=== PATIENT | female | born 1950 | race American Indian/Alaskan Native ===

== ENCOUNTER → 2020-06-16 | Emergency (ER) | payer MEDICARE, OTHER ==
[~2020-06-16] VITALS: Ht 149.9 cm; Wt 70.9 kg
[~2020-06-16] MED LIST: ALBU8.5H4 IH; CARV3.123 PR; CLOP75TA33 PO; EPIN0.3A3 IM; INSU100V36 SQ; IPRA3AMP31 IH; LANTUS SQ; LEVO112T52 PO; LISI-600 PO; METF-900 PO; NITR0.4T51 SL; ROSU10TA2 PO; TETanus/Pertussis (Acell)/Diphther VAC/PF (Tdap-Adult) 0.5ml syringe IMVAC ONE
[2020-06-16 14:50] LABS: BASOPHILS % (AUTO) 0.5 % (0-1); EOSINOPHILS # (AUTO) 0.2 X10'3 (0-0.9); EOSINOPHILS % (AUTO) 3.7 % (0-6); HEMATOCRIT 40.3 % (35.0-45.0); LYMPHOCYTES # (AUTO) 1.9 X10'3 (1.1-4.8); LYMPHOCYTES % (AUTO) 30.3 % (21-51); MEAN CORPUSCULAR HEMOGLOBIN 27.4 PG (27.0-31.0); MEAN CORPUSCULAR HGB CONC 32.4 g/dL (33.0-36.5); MEAN CORPUSCULAR VOLUME 84.5 FL (78-98); MEAN PLATELET VOLUME 9.4 FL (7.4-10.4); MONOCYTES # (AUTO) 0.6 X10'3 (0-0.9); MONOCYTES % (AUTO) 10.1 % (2-12); NEUTROPHILS # (AUTO) 3.5 X10'3 (1.8-7.7); NEUTROPHILS % (AUTO) 55.4 % (42-75); PLATELET COUNT 213 X10'3 (140-440); RED BLOOD COUNT 4.77 X10'6 (4.20-5.60); RED CELL DISTRIBUTION WIDTH 14.8 % (11.5-14.5); WHITE BLOOD COUNT 6.3 X10'3 (4.5-11.0)
[2020-06-16 15:03] LABS: ALANINE AMINOTRANSFERASE 25 U/L (12-78); ALBUMIN 3.5 G/DL (3.4-5.0); ALBUMIN/GLOBULIN RATIO 1.1 (1.1-1.5); ALKALINE PHOSPHATASE 63 IU/L (46-116); ANION GAP 11 (8-16); ASPARTATE AMINO TRANSFERASE 17 U/L (10-37); BILIRUBIN,TOTAL 0.3 MG/DL (0.1-1.0); BLOOD UREA NITROGEN 19 MG/DL (7-18); BUN/CREATININE RATIO 16.8 (6.6-38.0); CALCIUM 8.6 MG/DL (8.5-10.1); CHLORIDE 106 MMOL/L (99-107); CREATININE 1.13 MG/DL (0.40-0.90); GLUCOSE 91 MG/DL (70-104); POTASSIUM 4.7 MMOL/L (3.5-5.1); SODIUM 141 MMOL/L (135-145); TOTAL CARBON DIOXIDE 24.4 MMOL/L (24-32); TOTAL PROTEIN 6.8 G/DL (6.4-8.2); eGFR 47 ML/MIN
--- NOTE | 2020-06-16 16:17 | NUR ---
[facility] CALLED, THEY WILL BE HERE IN 20 MINUTES TO PICK PT UP.
[2020-06-16 16:28] VITALS: BP 134/73
== END | disposition home or self-care (01) ==
LOC: ER 13:55
DX: S09.90XA Unspecified injury of head, initial encounter (principal); S51.011A Laceration without foreign body of right elbow, initial encounter; R11.0 Nausea; R07.89 Other chest pain; E78.00 Pure hypercholesterolemia, unspecified; I10 Essential (primary) hypertension; J44.9 Chronic obstructive pulmonary disease, unspecified; E11.9 Type 2 diabetes mellitus without complications; Z20.3 Contact with and (suspected) exposure to rabies; Z98.890 Other specified postprocedural states; Z72.89 Other problems related to lifestyle; Z88.0 Allergy status to penicillin; Z91.011 Allergy to milk products; Z91.010 Allergy to peanuts; Z79.4 Long term (current) use of insulin; Z79.899 Other long term (current) drug therapy; W19.XXXA Unspecified fall, initial encounter; Y93.9 Activity, unspecified; Y92.89 Other specified places as the place of occurrence of the external cause; Y99.8 Other external cause status
CPT/HCPCS: 36415; 70450; 71045; 72125; 73080; 73090; 80053; 83880; 84484; 85025; 90471; 90715; 93005; 99285

== ENCOUNTER 2022-02-06 09:31 | Emergency (ER) | payer MEDICARE, OTHER ==
[~2022-02-06] VITALS: Ht 149.9 cm; Wt 79.1 kg
[~2022-02-06 09:31] MED LIST changes: -LISI-600 PO; +LISI20TA28 PO; -TETanus/Pertussis (Acell)/Diphther VAC/PF (Tdap-Adult) 0.5ml syringe IMVAC ONE
[2022-02-06] MEDS ORDERED: aspirin 81mg tab.chew PO ONE (09:45)
[2022-02-06] MEDS ORDERED: nitroGLYCERIN 0.4mg SUBLingual tab SL PRN (09:55)
[2022-02-06 10:10] LABS: BASOPHILS % (AUTO) 0.5 % (0-1); EOSINOPHILS # (AUTO) 0.1 X10'3 (0-0.9); EOSINOPHILS % (AUTO) 1.6 % (0-6); HEMATOCRIT 39.6 % (35.0-45.0); HEMOGLOBIN 13.2 g/dl (12.0-16.0); LYMPHOCYTES # (AUTO) 1.5 X10'3 (1.1-4.8); LYMPHOCYTES % (AUTO) 22.2 % (21-51); MEAN CORPUSCULAR HEMOGLOBIN 27.8 PG (27.0-31.0); MEAN CORPUSCULAR HGB CONC 33.4 g/dL (33.0-36.5); MEAN CORPUSCULAR VOLUME 83.3 FL (78-98); MEAN PLATELET VOLUME 8.8 FL (7.4-10.4); MONOCYTES # (AUTO) 0.6 X10'3 (0-0.9); MONOCYTES % (AUTO) 8.7 % (2-12); NEUTROPHILS # (AUTO) 4.6 X10'3 (1.8-7.7); PLATELET COUNT 215 X10'3 (140-440); RED BLOOD COUNT 4.75 X10'6 (4.20-5.60); RED CELL DISTRIBUTION WIDTH 15.4 % (11.5-14.5); WHITE BLOOD COUNT 6.9 X10'3 (4.5-11.0)
[2022-02-06 10:26] LABS: ALANINE AMINOTRANSFERASE 28 U/L (12-78); ALBUMIN 3.6 G/DL (3.4-5.0); ALBUMIN/GLOBULIN RATIO 1.2 (1.1-1.5); ALKALINE PHOSPHATASE 65 IU/L (46-116); ANION GAP 9 (8-16); ASPARTATE AMINO TRANSFERASE 18 U/L (10-37); BILIRUBIN,TOTAL 0.5 MG/DL (0.1-1.0); BLOOD UREA NITROGEN 18 MG/DL (7-18); BUN/CREATININE RATIO 15.4 (6.6-38.0); CALCIUM 8.9 MG/DL (8.5-10.1); CHLORIDE 103 MMOL/L (99-107); CREATININE 1.17 MG/DL (0.40-0.90); GLUCOSE 189 MG/DL (70-104); POTASSIUM 4.5 MMOL/L (3.5-5.1); SODIUM 137 MMOL/L (135-145); TOTAL CARBON DIOXIDE 24.8 MMOL/L (24-32); TOTAL PROTEIN 6.7 G/DL (6.4-8.2); eGFR 45 ML/MIN
[2022-02-06] MEDS ORDERED: metoprolol tartrate 50mg tablet PO ONE (10:50)
[2022-02-06] MEDS ORDERED: ROSU20TA31 (13:36)
[2022-02-06] MEDS ORDERED: AMLO5TAB16 (13:36)
[2022-02-06] MEDS ORDERED: LEVO75TA PO (13:36)
[2022-02-06 14:01] VITALS: BP 133/60
== END 2022-02-06 14:50 | disposition home or self-care (01) ==
LOC: ER 09:33
DX: R07.9 Chest pain, unspecified (principal); I10 Essential (primary) hypertension; I11.9 Hypertensive heart disease without heart failure; E78.00 Pure hypercholesterolemia, unspecified; E11.9 Type 2 diabetes mellitus without complications; J44.9 Chronic obstructive pulmonary disease, unspecified; E06.9 Thyroiditis, unspecified; Z91.011 Allergy to milk products; Z88.0 Allergy status to penicillin; Z79.899 Other long term (current) drug therapy; Z91.010 Allergy to peanuts
CPT/HCPCS: 36415; 71045; 80053; 83880; 84484; 85025; 93005; 99285

== ENCOUNTER 2023-04-05 00:42 | Observation (INO) | payer MEDICARE, OTHER ==
[~2023-04-05] VITALS: Ht 149.9 cm; Wt 72.3 kg
[~2023-04-05 00:42] MED LIST changes: +AMLO5TAB16; -LEVO112T52 PO; +LEVO75TA PO; +ROSU20TA73
[2023-04-05] MEDS ORDERED: oxyCODONE IR 5mg (immed. release) tablet PO ONE (01:00)
[2023-04-05] MEDS ORDERED: mag hydrox/Alum hydrox/simeth 30ml oral suspension PO ONE (01:00)
[2023-04-05] MEDS ORDERED: LIDOcaine Viscous 15ml cup MM ONE (01:00)
[2023-04-05 01:06] LABS: BASOPHILS % (AUTO) 0.6 % (0-1); EOSINOPHILS # (AUTO) 0.1 X10'3 (0-0.9); EOSINOPHILS % (AUTO) 2.4 % (0-6); HEMATOCRIT 40.1 % (35.0-45.0); HEMOGLOBIN 13.2 g/dl (12.0-16.0); LYMPHOCYTES % (AUTO) 35.7 % (21-51); MEAN CORPUSCULAR HEMOGLOBIN 27.1 PG (27.0-31.0); MEAN CORPUSCULAR HGB CONC 32.8 g/dL (33.0-36.5); MEAN CORPUSCULAR VOLUME 82.5 FL (78-98); MEAN PLATELET VOLUME 8.9 FL (7.4-10.4); MONOCYTES # (AUTO) 0.6 X10'3 (0-0.9); MONOCYTES % (AUTO) 10.6 % (2-12); NEUTROPHILS # (AUTO) 2.8 X10'3 (1.8-7.7); NEUTROPHILS % (AUTO) 50.7 % (42-75); PLATELET COUNT 215 X10'3 (140-440); RED BLOOD COUNT 4.86 X10'6 (4.20-5.60); RED CELL DISTRIBUTION WIDTH 16.2 % (11.5-14.5); WHITE BLOOD COUNT 5.6 X10'3 (4.5-11.0)
[2023-04-05 02:44] LABS: PROTHROMBIN TIME 10.9 SECONDS (9.0-12.0)
[2023-04-05 02:49] LABS: ALANINE AMINOTRANSFERASE 55 U/L (12-78); ALBUMIN 3.6 G/DL (3.4-5.0); ALBUMIN/GLOBULIN RATIO 1.1 (1.1-1.5); ALKALINE PHOSPHATASE 110 IU/L (46-116); ANION GAP 7 (8-16); ASPARTATE AMINO TRANSFERASE 112 U/L (10-37); BILIRUBIN,TOTAL 0.9 MG/DL (0.1-1.0); BLOOD UREA NITROGEN 22 MG/DL (7-18); BUN/CREATININE RATIO 17.1 (10.0-20.0); CALCIUM 9.3 MG/DL (8.5-10.1); CHLORIDE 102 MMOL/L (99-107); CREATININE 1.29 MG/DL (0.40-0.90); GLUCOSE 162 MG/DL (70-104); POTASSIUM 3.9 MMOL/L (3.5-5.1); SODIUM 138 MMOL/L (135-145); TOTAL CARBON DIOXIDE 28.7 MMOL/L (24-32); TOTAL PROTEIN 6.8 G/DL (6.4-8.2); eCRCL 26 ML/MIN; eGFR 40 ML/MIN
[2023-04-05 02:57] LABS: LIPASE 29 U/L (16-77); PRO BRAIN NATRIURETIC PEPTIDE 39 PG/ML (0-450)
[2023-04-05] MEDS ORDERED: ondansetron 4mg rapidly disintigrating tab PO ONE (03:30)
[2023-04-05 05:40] LABS: BILIRUBIN,URINE NEGATIVE (Neg); CLARITY,URINE CLEAR (Clear); COLOR,URINE YELLOW (Yellow); GLUCOSE, URINE >=1000 mg/dl (Neg); KETONES,URINE TRACE mg/dl (Neg); LEUKOCYTE ESTERASE ,URINE NEGATIVE (Neg); NITRITES, URINE NEGATIVE (Neg); OCCULT BLOOD,URINE TRACE-INTACT (Neg); PH,URINE 5.5 (4.8-8.0); PROTEIN,URINE NEGATIVE (Neg); UROBILINOGEN,URINE 0.2 E.U/dL (0.2-1.0)
[2023-04-05 05:41] LABS: UA COLLECTION TYPE CLN CATCH MIDSTREAM
[2023-04-05 05:59] LABS: BACTERIA,URINE NONE SEEN /HPF (Neg); MUCUS STRANDS NONE SEEN /LPF (Neg); RBC,URINE 0-2 /HPF (0-2); SQUAMOUS EPITHELIAL CELL,UR FEW /LPF (FEW); WBC,URINE 0-4 /HPF (0-4)
[2023-04-05] MEDS ORDERED: morphine 2 MG/ML inj. syringe IV PRN ×2 (09:40)
[2023-04-05] MEDS ORDERED: regadenoson 0.4mg/5ml syringe IV PRN (09:40)
[2023-04-05] MEDS ORDERED: metoprolol tartrate 1mg/ml inj IV PRN (09:40)
[2023-04-05] MEDS ORDERED: mag hydrox/Alum hydrox/simeth 30ml oral suspension PO PRN (09:40)
[2023-04-05] MEDS ORDERED: potassium Cl 40MEQ/1/2NS 520ml 520 ML IV PRN (09:40)
[2023-04-05] MEDS ORDERED: ondansetron/PF 4mg/2ml inj IV PRN (09:40)
[2023-04-05] MEDS ORDERED: nitroGLYCERIN 0.4mg SUBLingual tab SL PRN (09:40)
[2023-04-05] MEDS ORDERED: magnesium hydroxide 30ml (MOM) UD suspension PO PRN (09:40)
[2023-04-05] MEDS ORDERED: ipratropium/albuterol 3ml nebule IH PRN (09:40)
[2023-04-05] MEDS ORDERED: nitroGLYCERIN 0.4mg SUBLingual tab SL SCH (09:40)
[2023-04-05] MEDS ORDERED: docusate sod 100mg capsule PO PRN (09:40)
[2023-04-05] MEDS ORDERED: potassium Cl 20 mEq SR tablet PO PRN ×2 (09:40)
[2023-04-05] MEDS ORDERED: magnesium Cl slow-release 64mg tablet PO PRN (09:40)
[2023-04-05] MEDS ORDERED: aminophylline 250mg/10ml inj. IV PRN (09:40)
[2023-04-05] MEDS ORDERED: magnesium 4gm in 100ml NS 100 ML IV PRN (09:40)
[2023-04-05] MEDS ORDERED: acetaminophen 325mg tablet PO PRN (09:40)
[2023-04-05] MEDS ORDERED: insulin Lispro (HumaLOG) vial - multi-dose SQ SCH (09:55)
[2023-04-05] MEDS ORDERED: dextrose 50%-water 50ml dispensing syringe IV PRN ×2 (09:55)
[2023-04-05] MEDS ORDERED: MESSAGE TO PHARMACY PO ONE (09:55)
[2023-04-05] MEDS ORDERED: DEXTROSE 15 GM of carb/4 tabs (each vial/BOTTLE has 4 tablets) PO PRN ×2 (09:55)
[2023-04-05] MEDS ORDERED: glucagon, human recombinant 1mg kit SUBCUT PRN (09:55)
[2023-04-05 12:26] LABS: HEMOGLOBIN A1C 6.9 % (4.5-6.2)
--- NOTE | 2023-04-05 12:58 | NUR ---
pt taken to restroom via wheelchair, urine sample collected. pt placed in hospital bed.
[2023-04-05 15:35] VITALS: PULSE 87; RESP 16; O2SAT 94
--- NOTE | 2023-04-05 17:30 | NUR ---
PT WHEELED TO RESTROOM, TRANSFERRED TO WHEELCHAIR WITHOUT ISSUE. MEAL TRAY PROVIDED.
--- NOTE | 2023-04-05 18:16 | NUR ---
REPORT GIVEN TO LAVELL DILLON
--- NOTE | 2023-04-05 19:57 | NUR ---
PT HAS YET TO EAT DINNER, REQUESTED TRAY TO STAY IN ROOM IN CASE SHE DECIDES TO EAT. RESTING COMFORTABLY IN BED, VSS, RR EVEN & UNLABORED, NAD OBSERVED.
[2023-04-05] MEDS ORDERED: insulin glargine (Lantus) pen - multi-dose SQ SCH (21:00)
[2023-04-05 22:00] VITALS: BP 126/52; PULSE 84; RESP 22; TEMP 97.9; O2SAT 93
[2023-04-05] MEDS: carVEDilol 3.125mg tablet PO SCH (22:46)
[2023-04-05 23:28] VITALS: PULSE 81; RESP 18; O2SAT 95
[2023-04-06] VITALS (17 sets, daily range): BP systolic 102–152; BP diastolic 51–69; PULSE 63–100; RESP 12–22; TEMP 97.5–98.7; O2SAT 94–99
[2023-04-06 06:11] LABS: BASOPHILS % (AUTO) 0.3 % (0-1); EOSINOPHILS % (AUTO) 0.5 % (0-6); HEMATOCRIT 36.7 % (35.0-45.0); LYMPHOCYTES # (AUTO) 0.6 X10'3 (1.1-4.8); LYMPHOCYTES % (AUTO) 14.6 % (21-51); MEAN CORPUSCULAR HEMOGLOBIN 26.8 PG (27.0-31.0); MEAN CORPUSCULAR HGB CONC 32.6 g/dL (33.0-36.5); MEAN CORPUSCULAR VOLUME 82.2 FL (78-98); MEAN PLATELET VOLUME 8.7 FL (7.4-10.4); MONOCYTES # (AUTO) 0.5 X10'3 (0-0.9); MONOCYTES % (AUTO) 11.1 % (2-12); NEUTROPHILS # (AUTO) 3.2 X10'3 (1.8-7.7); NEUTROPHILS % (AUTO) 73.5 % (42-75); PLATELET COUNT 160 X10'3 (140-440); RED BLOOD COUNT 4.46 X10'6 (4.20-5.60); WHITE BLOOD COUNT 4.3 X10'3 (4.5-11.0)
[2023-04-06 06:44] LABS: ALANINE AMINOTRANSFERASE 368 U/L (12-78); ALKALINE PHOSPHATASE 168 IU/L (46-116); ANION GAP 8 (8-16); ASPARTATE AMINO TRANSFERASE 304 U/L (10-37); BILIRUBIN,TOTAL 3.3 MG/DL (0.1-1.0); BLOOD UREA NITROGEN 17 MG/DL (7-18); CALCIUM 8.2 MG/DL (8.5-10.1); CHLORIDE 101 MMOL/L (99-107); CREATININE 1.06 MG/DL (0.40-0.90); GLUCOSE 132 MG/DL (70-104); SODIUM 136 MMOL/L (135-145); TOTAL CARBON DIOXIDE 27.2 MMOL/L (24-32); TOTAL PROTEIN 5.9 G/DL (6.4-8.2); eCRCL 31 ML/MIN; eGFR 51 ML/MIN
[2023-04-06] MEDS ORDERED: levoTHYROXINE 75mcg tablet PO SCH (07:00)
--- NOTE | 2023-04-06 07:06 | NUR ---
Patient in room PCU 3014. I have received report from EDISON COSTA and had the opportunity to ask questions and assume patient care.
[2023-04-06] MEDS: carVEDilol 3.125mg tablet PO SCH (07:49)
[2023-04-06] MEDS ORDERED: lisinopril 20mg tablet PO SCH (08:00)
[2023-04-06] MEDS ORDERED: clopidogrel 75mg tablet PO SCH (08:00)
[2023-04-06] MEDS ORDERED: ROSUVASTATIN CALCIUM 5 MG TABLET PO SCH (08:00)
[2023-04-06] MEDS ORDERED: amLODIPine 5mg tablet PO SCH (08:00)
--- NOTE | 2023-04-06 08:35 | NUR ---
PATIENT OFF FLOOR TO [facility]. NOTIFIED.
--- NOTE | 2023-04-06 10:35 | NUR ---
PAGER ID: [phone] MESSAGE: HALINA [email or web address], [facility] RESULT IS AVAILABLE ON [id number], THANK YOU
--- NOTE | 2023-04-06 12:27 | NUR ---
PATIENT ATE A VERY LATE BREAKFAST, BLOOD GLUCOSE NOT DONE AT LUNCH TIME PREPRANDIAL.
== END 2023-04-06 14:04 | disposition home or self-care (01) ==
LOC: ER 00:43 → INTOOBSV 09:48 → ED HOLD 09:48 → PCU 3S 21:04
PROVIDERS: ADMIT Family Medicine; ATTEND Family Medicine
DX: R07.89 Other chest pain (principal); E11.9 Type 2 diabetes mellitus without complications; I25.10 Atherosclerotic heart disease of native coronary artery without angina pectoris; G47.33 Obstructive sleep apnea (adult) (pediatric); E78.5 Hyperlipidemia, unspecified; I10 Essential (primary) hypertension; N17.9 Acute kidney failure, unspecified; J44.9 Chronic obstructive pulmonary disease, unspecified; E03.9 Hypothyroidism, unspecified; E78.00 Pure hypercholesterolemia, unspecified; I25.2 Old myocardial infarction; K57.50 Diverticulosis of both small and large intestine without perforation or abscess without bleeding; K44.9 Diaphragmatic hernia without obstruction or gangrene; Z95.5 Presence of coronary angioplasty implant and graft; Z88.0 Allergy status to penicillin; Z79.899 Other long term (current) drug therapy
CPT/HCPCS: 36415; 71045; 74176; 78451; 80053; 81001; 82948; 83036; 83690; 83880; 84484; 85025; 85610; 87081; 93017; 94760; 99285; A9500; G0378; J1815; J2785

== ENCOUNTER 2024-02-03 09:59 | Emergency (ER) | payer MEDICARE, OTHER ==
[~2024-02-03] VITALS: Ht 149.9 cm; Wt 75.9 kg
[2024-02-03 10:07] VITALS: BP 171/59; PULSE 69; RESP 18; TEMP 97.9; O2SAT 98
[2024-02-03 10:35] LABS: BASOPHILS % (AUTO) 0.5 % (0-1); EOSINOPHILS # (AUTO) 0.2 X10'3 (0-0.9); EOSINOPHILS % (AUTO) 2.7 % (0-6); HEMATOCRIT 45.7 % (35.0-45.0); HEMOGLOBIN 14.7 g/dl (12.0-16.0); LYMPHOCYTES # (AUTO) 1.8 X10'3 (1.1-4.8); LYMPHOCYTES % (AUTO) 25.4 % (21-51); MEAN CORPUSCULAR HEMOGLOBIN 27.4 PG (27.0-31.0); MEAN CORPUSCULAR HGB CONC 32.1 g/dL (33.0-36.5); MEAN CORPUSCULAR VOLUME 85.2 FL (78-98); MEAN PLATELET VOLUME 8.9 FL (7.4-10.4); MONOCYTES # (AUTO) 0.7 X10'3 (0-0.9); MONOCYTES % (AUTO) 9.2 % (2-12); NEUTROPHILS # (AUTO) 4.5 X10'3 (1.8-7.7); NEUTROPHILS % (AUTO) 62.2 % (42-75); PLATELET COUNT 223 X10'3 (140-440); RED BLOOD COUNT 5.36 X10'6 (4.20-5.60); RED CELL DISTRIBUTION WIDTH 15.9 % (11.5-14.5); WHITE BLOOD COUNT 7.3 X10'3 (4.5-11.0)
[2024-02-03 10:41] LABS: ALANINE AMINOTRANSFERASE 26 U/L (12-78); ALBUMIN 3.8 G/DL (3.4-5.0); ALBUMIN/GLOBULIN RATIO 1.1 (1.1-1.5); ALKALINE PHOSPHATASE 61 IU/L (46-116); ANION GAP 13 (8-16); ASPARTATE AMINO TRANSFERASE 27 U/L (10-37); BILIRUBIN,TOTAL 0.4 MG/DL (0.1-1.0); BLOOD UREA NITROGEN 21 MG/DL (7-18); BUN/CREATININE RATIO 18.8 (10.0-20.0); CHLORIDE 104 MMOL/L (99-107); CREATININE 1.12 MG/DL (0.40-0.90); GLUCOSE 141 MG/DL (70-104); POTASSIUM 4.5 MMOL/L (3.5-5.1); SODIUM 142 MMOL/L (135-145); TOTAL PROTEIN 7.3 G/DL (6.4-8.2); eCRCL 30 ML/MIN; eGFR 47 ML/MIN
[2024-02-03 10:50] LABS: PRO BRAIN NATRIURETIC PEPTIDE < 30 PG/ML (0-450)
[2024-02-03 12:52] LABS: APTT 27 SECONDS (22-32); PROTHROMBIN TIME 10.6 SECONDS (9.0-12.0)
[2024-02-03 14:05] LABS: FREE T4 (FREE THYROXINE) 1.06 NG/DL (0.73-1.40); PRO BRAIN NATRIURETIC PEPTIDE < 30 PG/ML (0-450); THYROID STIMULATING HORMONE 1.33 ulU/ml (0.34-4.50)
== END 2024-02-03 14:20 | disposition left against medical advice (07) ==
LOC: ER 10:00
DX: R07.89 Other chest pain (principal); Z53.21 Procedure and treatment not carried out due to patient leaving prior to being seen by health care provider; R79.89 Other specified abnormal findings of blood chemistry
CPT/HCPCS: 36415; 71045; 80053; 83880; 84439; 84443; 84484; 85025; 85610; 85730; 93005

== ENCOUNTER 2025-02-21 15:35 | Emergency (ER) | payer MEDICARE, OTHER, MEDICAID ==
[~2025-02-21] VITALS: Ht 149.9 cm; Wt 71.8 kg
[~2025-02-21 15:35] MED LIST changes: +ASPI81TA52 PO; +CHOL25PO8 PO; +IMMU2VIA; -IPRA3AMP31 IH; +MOME17SP15; +PANT40SU2 PO; -ROSU20TA73; +ROSU20TA98; +SITA100T11 PO
--- NOTE | 2025-02-21 16:07 | RADIOLOGY REPORT ---
Indication: Shoulder Pain LEFT Technique: DI SHOULDER, COMPLETE (MIN 2 VWS)SHOULDERCM Comparison: None FINDINGS/IMPRESSION: No radiographic evidence for acute fracture or dislocation. There is moderate left AC joint arthrosis. Possible small left pleural effusion.
--- NOTE | 2025-02-21 16:16 | RADIOLOGY REPORT ---
EXAM: DI ANKLE, COMPLETE(3VW MIN) HISTORY: ANKLE PAIN LEFT COMPARISON: ELBOW, COMPLETE (3VW MIN) on DOS: 06/16/20 TECHNIQUE: Three views of the left ankle were performed. FINDINGS: No acute fracture or dislocation are identified about the left ankle. The mortise is intact. Plantar calcaneal bone spur and Achilles insertion enthesophyte are incidentally noted. IMPRESSION: No acute fracture of the left ankle.
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
[2025-02-21 18:36] VITALS: BP 132/66; PULSE 67; RESP 16; TEMP 98; O2SAT 97
== END 2025-02-21 18:38 | disposition home or self-care (01) ==
LOC: ER 15:36
DX: M25.512 Pain in left shoulder (principal); M25.572 Pain in left ankle and joints of left foot; E78.00 Pure hypercholesterolemia, unspecified; E11.9 Type 2 diabetes mellitus without complications; I10 Essential (primary) hypertension; I25.10 Atherosclerotic heart disease of native coronary artery without angina pectoris; I25.2 Old myocardial infarction; J44.9 Chronic obstructive pulmonary disease, unspecified; Z88.6 Allergy status to analgesic agent; Z88.0 Allergy status to penicillin; Z91.010 Allergy to peanuts; Z91.0110 Allergy to milk products, unspecified; Z79.899 Other long term (current) drug therapy; Z79.82 Long term (current) use of aspirin; Z79.84 Long term (current) use of oral hypoglycemic drugs; V98.8XXA Other specified transport accidents, initial encounter; Y93.89 Activity, other specified; Y92.89 Other specified places as the place of occurrence of the external cause; Y99.8 Other external cause status
CPT/HCPCS: 70450; 72125; 73030; 73610; 99284